=== PATIENT | male | born 1980 ===

== ENCOUNTER → 2017-09-02 | Outpatient (CLI) | payer OTHER ==
[~2017-09-02] MED LIST: CEPH250A PO; HYDACE5 PO; LOPE2C PO; NAPR500 PO; Zofran8 MG PO
== END | disposition home or self-care (01) ==
LOC: LAB SHORT 14:25 → LAB EV 14:25
DX: J06.9 Acute upper respiratory infection, unspecified (principal)
CPT/HCPCS: 87070